=== PATIENT | male | born 1985 | race Caucasian/White ===

== ENCOUNTER 2021-09-12 14:23 | Emergency (ER) | payer BC ==
[~2021-09-12] VITALS: Ht 182.9 cm; Wt 91.2 kg
[2021-09-12 14:33] VITALS: BP 131/76
--- NOTE | 2021-09-12 14:40 | NUR ---
PATIENT AND DIRECTOR MUSIC HEADED FOR THE DOOR,WHEN ASKED IF HE IS LEAVING,HE SAID, "IT WILL TAKE FOR AN HR FOR THE DR TO SEE ME WHEN I ASKED HIM." I EXPLAINE THAT DR ISBELL JUST STARTED HIS SHIFT WITH SEVERAL SICK PATIENTS WAITING,THAT'S WHY HE HAS TO SEE THEM FIRST.
--- NOTE | 2021-09-12 14:42 | NUR ---
PATIENT DROVE OFF WITH CAMPANION.
== END 2021-09-12 14:51 | disposition left against medical advice (07) ==
LOC: ER 14:25
DX: Z53.21 Procedure and treatment not carried out due to patient leaving prior to being seen by health care provider (principal)